=== PATIENT | female | born 1995 | race Caucasian/White ===

== ENCOUNTER 2017-03-11 15:27 | Emergency (ER) | payer OTHER ==
[2017-03-11 15:42] VITALS: BP 130/86
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
== END 2017-03-11 17:47 | disposition home or self-care (01) ==
LOC: ER 15:27
DX: S80.02XA Contusion of left knee, initial encounter (principal); S50.811A Abrasion of right forearm, initial encounter; S70.211A Abrasion, right hip, initial encounter; M79.631 Pain in right forearm; M25.562 Pain in left knee; V44.5XXA Car driver injured in collision with heavy transport vehicle or bus in traffic accident, initial encounter; W22.10XA Striking against or struck by unspecified automobile airbag, initial encounter
CPT/HCPCS: 99283